=== PATIENT | female | born 1950 | race Caucasian/White ===

== ENCOUNTER 2021-11-16 15:02 | Emergency (ER) | payer OTHER ==
[2021-11-16 15:20] VITALS: BP 136/89; PULSE 77; TEMP 98.1; BMI 27.6
== END 2021-11-16 17:55 | disposition home or self-care (01) ==
LOC: JERFT 15:02
DX: S09.90XA Unspecified injury of head, initial encounter (principal); W22.8XXA Striking against or struck by other objects, initial encounter
CPT/HCPCS: 70450-TC; 73110-TC-LT-FY; 73130-TC-LT-FY; 99284-25